=== PATIENT | female | born 1990 | race African-American/Black ===

== ENCOUNTER 2021-07-19 14:29 | Emergency (ER) | payer OTHER ==
[~2021-07-19] VITALS: Ht 172.7 cm; Wt 55.0 kg
[2021-07-19] MEDS ORDERED: MAGNESIUM/ALUMINUM HYDROXIDE/SIMETHICONE 30ML UDC PO STA (16:36)
[2021-07-19] MEDS ORDERED: FAMOTIDINE 20MG TABLET PO ONE (16:45)
[2021-07-19 17:04] LABS: CLARITY URINE CLEAR (CLEAR); COLOR URINE YELLOW (YELLOW); KETONES URINE NEGATIVE (NEGATIVE); LEUKOCYTE ESTERASE URINE NEGATIVE (NEGATIVE); NITRITE URINE NEGATIVE (NEGATIVE); OCCULT BLOOD URINE NEGATIVE (NEGATIVE); PH URINE 8.5 (4.5-8.0); PROTEIN URINE NEGATIVE (NEGATIVE); SPECIFIC GRAVITY URINE 1.017 (1.005-1.030)
[2021-07-19 17:09] LABS: CHLORIDE 106 mEq/L (98-107)
[2021-07-19 17:10] LABS: EOSINOPHILS % 0.5 % (0.0-5.0); HEMATOCRIT. 39.1 % (36.0-48.0); HEMOGLOBIN. 13.7 g/dL (12.0-16.0); LYMPHOCYTES % 34.6 % (20.0-50.0); MEAN CORPUSCULAR HEMOGLOBIN 30.8 pg (28.0-32.0); MEAN CORPUSCULAR VOLUME 87.6 fL (81.0-99.0); MEAN PLATELET VOLUME 8.4 fl (7.4-10.4); MONOCYTES % 7.1 % (2.0-8.0); NEUTROPHILS % 56.8 % (40.0-76.0); PLATELET 383 x1000/uL (130-400); RED BLOOD CELL COUNT 4.46 mill/uL (4.2-5.4); RED CELL DISTRIBUTION WIDTH 12.9 % (11.6-14.6)
[2021-07-19 17:12] LABS: INR 1.1; PROTHROMBIN TIME 11.8 sec (9.6-11.0)
[2021-07-19] MEDS ORDERED: HYDROCODONE/ACETAMINOPHEN 5/325MG TABLET PO ONE (17:30)
[2021-07-19 18:29] VITALS: BP 115/79
[2021-07-19] MEDS ORDERED: PROT20 MT (19:00)
== END 2021-07-19 19:22 | disposition home or self-care (01) ==
LOC: ER 14:29
DX: R10.13 Epigastric pain (principal); R11.10 Vomiting, unspecified; F10.229 Alcohol dependence with intoxication, unspecified; Y90.0 Blood alcohol level of less than 20 mg/100 ml
CPT/HCPCS: 36415; 80053; 81003; 81025; 85025; 99284

== ENCOUNTER 2022-08-15 16:31 | Emergency (ER) | payer MEDICAID, OTHER ==
[~2022-08-15] VITALS: Ht 170.2 cm; Wt 59.0 kg
[~2022-08-15 16:31] MED LIST: PROT20 MT
[2022-08-15] MEDS ORDERED: ONDANSETRON HCL 4MG/2ML INJ IV STA (17:31)
[2022-08-15] MEDS ORDERED: MAGNESIUM/ALUMINUM HYDROXIDE/SIMETHICONE 30ML UDC PO STA (17:31)
[2022-08-15] MEDS ORDERED: VISCOUS LIDOCAINE 2% 15 ML UDC PO STA (17:31)
[2022-08-15] MEDS ORDERED: DICYCLOMINE 10 MG/5 ML ORAL SYR PO STA (17:31)
[2022-08-15] MEDS ORDERED: SODIUM CHLORIDE 0.9% 1,000 ML IV ONE (17:45)
[2022-08-15 17:51] LABS: CLARITY URINE CLEAR (CLEAR); COLOR URINE YELLOW (YELLOW); KETONES URINE NEGATIVE (NEGATIVE); LEUKOCYTE ESTERASE URINE NEGATIVE (NEGATIVE); NITRITE URINE POSITIVE (NEGATIVE); OCCULT BLOOD URINE 3+ (NEGATIVE); PH URINE 7.5 (4.5-8.0); PROTEIN URINE NEGATIVE (NEGATIVE); SPECIFIC GRAVITY URINE 1.008 (1.005-1.030); UROBILINOGEN URINE 0.2 E.U./dL (0.2-1.0)
[2022-08-15 18:05] LABS: CHLORIDE 105 mEq/L (98-107)
[2022-08-15 18:09] LABS: BASOPHILS % 0.9 % (0.0-2.0); EOSINOPHILS % 0.5 % (0.0-5.0); HEMATOCRIT. 37.4 % (36.0-48.0); HEMOGLOBIN. 13.1 g/dL (12.0-16.0); LYMPHOCYTES % 35.4 % (20.0-50.0); MEAN CORPUSCULAR VOLUME 91.2 fL (81.0-99.0); MEAN PLATELET VOLUME 7.8 fl (7.4-10.4); MONOCYTES % 7.8 % (2.0-8.0); NEUTROPHILS % 55.4 % (40.0-76.0); PLATELET 306 x1000/uL (130-400); RED CELL DISTRIBUTION WIDTH 13.4 % (11.6-14.6)
[2022-08-15] MEDS ORDERED: CEFTRIAXONE 2 G PREMIX 50 ML IV ONE (18:45)
[2022-08-15] MEDS ORDERED: CEFTRIAXONE 2 G in DEXTROSE 5% WATER 50 ML IV NR (19:00)
[2022-08-15] MEDS ORDERED: CEPH500C2 MT (20:12)
[2022-08-15 21:20] VITALS: BP 140/89
== END 2022-08-15 21:30 | disposition home or self-care (01) ==
LOC: ER 16:31
DX: N30.00 Acute cystitis without hematuria (principal); F10.229 Alcohol dependence with intoxication, unspecified; Y90.0 Blood alcohol level of less than 20 mg/100 ml
CPT/HCPCS: 36415; 80053; 81003; 81025; 83690; 85025; 96365; 96375; 99284; J0696; J2405; J7030; J7060

== ENCOUNTER 2022-09-15 22:40 | Emergency (ER) | payer OTHER, MEDICAID ==
[~2022-09-15] VITALS: Ht 167.6 cm; Wt 58.0 kg
[~2022-09-15 22:40] MED LIST changes: +CEPH500C2 MT
[2022-09-15 22:55] VITALS: BP 123/83
== END 2022-09-16 02:39 | disposition left against medical advice (07) ==
LOC: ER 22:40
DX: Z53.21 Procedure and treatment not carried out due to patient leaving prior to being seen by health care provider (principal)

== ENCOUNTER 2022-09-18 09:10 | Emergency (ER) | payer OTHER, MEDICAID ==
[~2022-09-18] VITALS: Ht 167.6 cm; Wt 68.0 kg
[2022-09-18 09:19] VITALS: BP 151/76
[2022-09-18] MEDS ORDERED: CIPROFLOXACIN 0.3% OPHTH SOLN 2.5ML RIGHTEYE STA (09:59)
[2022-09-18] MEDS ORDERED: CIPR5DRO EACHEYE (10:04)
[2022-09-18] MEDS ORDERED: CEPH500T MT (10:38)
== END 2022-09-18 10:53 | disposition home or self-care (01) ==
LOC: ER 09:10
DX: H10.31 Unspecified acute conjunctivitis, right eye (principal); H57.11 Ocular pain, right eye
CPT/HCPCS: 99283